=== PATIENT | male | born 1965 | race Caucasian/White ===

== ENCOUNTER → 2018-09-08 | Outpatient (CLI) | payer BC | LOC: COL.RAD 08-25 08:30 | DX: I65.22 Occlusion and stenosis of left carotid artery (principal); Z82.49 Family history of ischemic heart disease and other diseases of the circulatory system | CPT/HCPCS: Q9967 ==

== ENCOUNTER → 2018-10-24 | Outpatient (CLI) | payer BC | LOC: DIA.ED 14:08 | DX: E11.9 Type 2 diabetes mellitus without complications (principal); Z79.4 Long term (current) use of insulin | CPT/HCPCS: G0108 ==

== ENCOUNTER → 2018-11-16 | Outpatient (CLI) | payer BC | LOC: DIA.ED 14:13 | DX: E11.9 Type 2 diabetes mellitus without complications (principal); Z79.4 Long term (current) use of insulin | CPT/HCPCS: G0108 ==

== ENCOUNTER → 2019-08-09 | Outpatient (CLI) | payer BC | LOC: DIA.ED 06-07 10:40 | DX: E11.9 Type 2 diabetes mellitus without complications (principal); Z79.84 Long term (current) use of oral hypoglycemic drugs; I10 Essential (primary) hypertension | CPT/HCPCS: G0108 ==

== ENCOUNTER → 2019-12-13 | Outpatient (CLI) | payer BC | LOC: DIA.ED 12-06 07:59 | DX: E11.9 Type 2 diabetes mellitus without complications (principal); Z79.84 Long term (current) use of oral hypoglycemic drugs; I10 Essential (primary) hypertension | CPT/HCPCS: G0108 ==

== ENCOUNTER → 2020-02-19 | Outpatient (CLI) | payer BC | LOC: COL.RAD 09:23 | DX: M89.9 Disorder of bone, unspecified (principal) | CPT/HCPCS: A9503 ==

== ENCOUNTER → 2020-04-18 | Outpatient (CLI) | payer BC | LOC: DIA.ED 08:50 | DX: E11.9 Type 2 diabetes mellitus without complications (principal); Z79.84 Long term (current) use of oral hypoglycemic drugs; I10 Essential (primary) hypertension | CPT/HCPCS: G0108 ==

== ENCOUNTER → 2020-08-22 | Outpatient (CLI) | payer BC | LOC: DIA.ED 08:42 | DX: E11.65 Type 2 diabetes mellitus with hyperglycemia (principal); Z79.84 Long term (current) use of oral hypoglycemic drugs; I10 Essential (primary) hypertension; E78.5 Hyperlipidemia, unspecified | CPT/HCPCS: G0108 ==

== ENCOUNTER → 2021-01-01 | Outpatient (CLI) | payer BC | LOC: DIA.ED 12-25 15:50 | DX: E11.65 Type 2 diabetes mellitus with hyperglycemia (principal); Z79.84 Long term (current) use of oral hypoglycemic drugs; E78.5 Hyperlipidemia, unspecified; I10 Essential (primary) hypertension | CPT/HCPCS: G0108 ==

== ENCOUNTER → 2021-06-02 | Outpatient (CLI) | payer BC | LOC: DIA.ED 09:23 | DX: E11.65 Type 2 diabetes mellitus with hyperglycemia (principal); Z79.84 Long term (current) use of oral hypoglycemic drugs; I10 Essential (primary) hypertension; E78.5 Hyperlipidemia, unspecified | CPT/HCPCS: G0108 ==